=== PATIENT | female | born 1980 | race African-American/Black ===

== ENCOUNTER 2019-07-07 03:59 | Emergency (ER) | payer BC ==
[2019-07-07] MEDS ORDERED: ONDANSETRON *ODT* 4 MG TABLET SL ONE (04:27)
[2019-07-07 04:28] VITALS: BMI 37.8
[2019-07-07] MEDS ORDERED: SODIUM CHLORIDE 1,000 ML IV STA (04:28)
[2019-07-07] MEDS ORDERED: ACETAMINOPHEN 1000 MG/100 ML VIAL (NON FORMULARY) IVPB ONE (04:30)
--- NOTE | 2019-07-07 04:33 | PDOC ---
History of Present Illness - General Chief Complaint: Nausea/Vomiting Stated Complaint: VOMITING Time Seen by Provider: 07/07/19 04:15 History Source: Patient, Friend - History of Present Illness Initial Comments: 07/07/19 04:31 Pt is a 39y/o female with GERD who presents with nausea/vomiting x2 days. 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 She started Tamiflu 2 days ago. Pt reports fever with Tmax 105. She has been alternating Tylenol and Motrin but fever has not stopped. She has body aches, chills, non- productive cough. She had diarrhea 2 days ago and took Imodium with no BM since. She now reports bloating and passes some gas. Past History - Past Medical History Allergies/Adverse Reactions: Allergies Allergy/AdvReac Type Severity Reaction Status Date / Time eggplant Allergy Verified 07/07/19 04:28 red dye Allergy Verified 07/07/19 04:28 COPD: No - Surgical History Neurologic Surgery: Yes (Spinal surgery 3 herniated disks) - Immunization History Immunization Up to Date: Yes - Psycho Social/Smoking Cessation Hx Smoking History: Never smoked Have you smoked in the past 12 months: No Information on smoking cessation initiated: No Hx Alcohol Use: No Drug/Substance Use Hx: No (Occasional marijuana use) *Physical Exam - Vital Signs Last Vital Signs Temp Pulse Resp BP Pulse Ox 102.5 F H 99 H 20 109/67 96 07/07/19 04:23 07/07/19 04:23 07/07/19 04:23 07/07/19 04:23 07/07/19 04:23 ED Treatment Course - LABORATORY CBC & Chemistry Diagram: 07/07/19 05:30 07/07/19 05:30 Medical Decision Making - Medical Decision Making 07/07/19 04:44 Pt is a 39y/o female with GERD who presents with nausea/vomiting x2 days and tested positive for flu A 4 days ago. She started Tamiflu 2 days ago. ddx: influenza, , UTI CBC, CMP, UPT, UA, Zofran 8mg ODT, 1L NS, Ofirmev 1g, Toradol 30mg, Pepcid 20mg , Mylanta 07/07/19 06:52 negative UPT UA +protein, glucose, ketone- likely from dehydration; pt will need to f/u with PCP for possible type 2 diabetes BG 258 fasting CBC unremarkable transaminitis vomiting stopped, but still some nausea, will give Reglan 10mg Discharge - Discharge Information Problems reviewed: Yes Clinical Impression/Diagnosis: Vomiting Qualifiers: Vomiting type: unspecified Vomiting Intractability: non-intractable Nausea presence: with nausea Qualified Code(s): R11.2 - Nausea with vomiting, unspecified - Follow up/Referral - Patient Discharge Instructions Patient Printed Discharge Instructions: DI for Vomiting -- Adult Additional Instructions: You were seen in the emergency room for vomiting and fever. You were given medications for fever, pain, nausea, as well as hydration. Your symptoms have improved, and you are able to go home. Follow up with your primary care doctor as your blood glucose was 258, and your urinalysis had glucose and ketones in it. - Post Discharge Activity
[2019-07-07] MEDS ORDERED: ACETAMINOPHEN INJECTION 100 ML IVPB ONE (04:35)
[2019-07-07] MEDS ORDERED: MAG HYDROX/AL HYDROX/SIMETH 30 ML UNIT-DOSE CUP PO ONE (05:13)
[2019-07-07] MEDS ORDERED: FAMOTIDINE 20 MG TABLET PO ONE (05:13)
[2019-07-07] MEDS ORDERED: KETOROLAC TROMETHAMINE 30 MG/1 ML VIAL IVPUSH ONE (05:13)
[2019-07-07] MEDS ORDERED: LACTATED RINGERS SOLUTION 1,000 ML/1,000 ML INFUS.BAG IV STA (05:13)
--- NOTE | 2019-07-07 05:16 | PDOC ---
Attending Attestation - Resident Resident Name: Radha Martini - ED Attending Attestation I have performed the following: I have examined & evaluated the patient, The case was reviewed & discussed with the resident, I agree w/resident's findings & plan, Exceptions are as noted - HPI HPI: 07/07/19 05:14 39yoF known FLU A + on tamiflu presnts w/ malaise, fevers, vomiting, unable to tolerate PO at home. No new or changed symptoms, feels that she is not doing well. states she feels dehydrated. - Physicial Exam PE: 07/07/19 05:15 NAD, appears under the weather RRR CTABL soft, diffuse mild ttp, no guarding, no rebound. mm dry neuro nonfocal A&O x 3 - Medical Decision Making 07/07/19 05:15 39yoF w/ known FLU A + x few days presents w/ difficulty controlling symptoms at home. - labs - ivf - sxs control - reeval and dispo per results.
[2019-07-07 05:25] LABS: EPI CELLS 32.4 /HPF (0-5/HPF); HYALINE CASTS 46 /lpf (0-8); PH,URINE 6.5 (5.0-8.0); URINE APPEARANCE CLOUDY; URINE BACTERIA 663.9 /hpf (NEGATIVE); URINE BILIRUBIN NEGATIVE (NEGATIVE); URINE COLOR DK YELLOW; URINE GLUCOSE (UA) 3+ (NEGATIVE); URINE KETONE 2+ (NEGATIVE); URINE LEUK ESTERASE NEGATIVE (NEGATIVE); URINE NITRITE NEGATIVE (NEGATIVE); URINE PROTEIN 2+ (NEGATIVE); URINE WBC 6 /hpf (0-5)
[2019-07-07] MEDS ORDERED: MAG HYDROX/AL HYDROX/SIMETH 30 ML UNIT-DOSE CUP ONE (05:38)
[2019-07-07] MEDS ORDERED: FAMOTIDINE 20 MG TABLET ONE (05:38)
[2019-07-07] MEDS ORDERED: KETOROLAC TROMETHAMINE 30 MG/1 ML VIAL ONE (05:39)
[2019-07-07 06:14] LABS: BASO % 0.6 % (0-2.0); EOS % 0.1 % (0-4.5); HEMATOCRIT 38.7 % (32.4-45.2); HEMOGLOBIN 12.5 GM/dL (10.7-15.3); LYMPH % 19.7 % (8-40); MCH 27.1 pg (25.7-33.7); MCHC 32.4 g/dl (32.0-36.0); MEAN CELL VOLUME 83.9 fl (80-96); MEAN PLT VOLUME 10.1 fl (7.5-11.1); MONO % 6.6 % (3.8-10.2); PLATELET COUNT 164 K/MM3 (134-434); RBC 4.61 M/mm3 (3.60-5.2); RDW 13.9 % (11.6-15.6); WHITE BLOOD COUNT 2.8 K/mm3 (4.0-10.0)
[2019-07-07 06:18] LABS: URINE RBC 10.2 /hpf (0-4)
[2019-07-07] MEDS ORDERED: METOCLOPRAMIDE HCL INJECTION 10 MG/2 ML VIAL IVPUSH ONE (06:43)
[2019-07-07 06:47] LABS: ALBUMIN 3.3 g/dl (3.4-5.0); BILIRUBIN,TOTAL 0.8 mg/dL (0.2-1); BLOOD UREA NITROGEN 5.4 mg/dL (7-18); CALCIUM 8.5 mg/dL (8.5-10.1); POTASSIUM 3.8 mmol/L (3.5-5.1); TOT PROT 7.8 g/dl (6.4-8.2)
[2019-07-07] MEDS ORDERED: SODIUM CHLORIDE 0.9% 500 ML INFUS.BAG IV ONE (07:32)
--- NOTE | 2019-07-07 07:43 | PDOC ---
*Physical Exam - Vital Signs Last Vital Signs Temp Pulse Resp BP Pulse Ox 102.5 F H 99 H 20 109/67 96 07/07/19 04:23 07/07/19 04:23 07/07/19 04:23 07/07/19 04:23 07/07/19 04:23 ED Treatment Course - LABORATORY CBC & Chemistry Diagram: 07/07/19 05:30 07/07/19 11:15 - ADDITIONAL ORDERS Additional order review: Laboratory Results 07/07/19 07/07/19 07/07/19 05:30 05:00 05:00 Sodium 134 L Potassium 3.8 Chloride 100 Carbon Dioxide 25 Anion Gap 8 BUN 5.4 L Creatinine 1.0 Est GFR (CKD-EPI)AfAm 83.35 Est GFR (CKD-EPI)NonAf 71.91 Random Glucose 258 H Calcium 8.5 Total Bilirubin 0.8 AST 114 H ALT 116 H Alkaline Phosphatase 107 Total Protein 7.8 Albumin 3.3 L Urine Color Dk yellow Urine Appearance Cloudy Urine pH 6.5 Ur Specific [place] 1.034 Urine Protein 2+ H Urine Glucose (UA) 3+ H Urine Ketones 2+ H Urine Blood Negative Urine Nitrite Negative Urine Bilirubin Negative Urine Urobilinogen 1.0 Ur Leukocyte Esterase Negative Urine WBC (Auto) 6 Urine RBC (Auto) 10.2 Urine Casts (Auto) 46 U Pathogenic Cast Auto None seen U Epithel Cells (Auto) 32.4 U Sm Round Cell (Auto) None seen Urine Bacteria (Auto) 663.9 Urine HCG, Qual Negative 07/07/19 05:30 RBC 4.61 MCV 83.9 MCHC 32.4 RDW 13.9 MPV 10.1 Neutrophils % 73.0 Lymphocytes % 19.7 Monocytes % 6.6 Eosinophils % 0.1 Basophils % 0.6 - Medications Given in the ED: ED Medications Discontinued Medications Generic Name Dose Route Start Last Admin Trade Name Freq PRN Reason Stop Dose Admin Acetaminophen 1,000 mg 07/07/19 04:30 07/07/19 05:25 Ofirmev Injection - IVPB 07/07/19 04:31 1,000 mg ONCE ONE Administration Al Hydroxide/Mg Hydroxide 30 ml 07/07/19 05:13 07/07/19 05:50 Mylanta Oral Suspension - PO 07/07/19 05:14 30 ml ONCE ONE Administration Famotidine 20 mg 07/07/19 05:13 07/07/19 05:50 Pepcid - PO 07/07/19 05:14 20 mg ONCE ONE Administration Sodium Chloride 1,000 mls @ 1,000 mls/hr 07/07/19 04:28 07/07/19 05:45 Normal Saline - IV 07/07/19 05:27 1,000 mls/hr ASDIR STA Administration Ketorolac Tromethamine 30 mg 07/07/19 05:13 07/07/19 05:50 Toradol Injection - IVPUSH 07/07/19 05:14 30 mg ONCE ONE Administration Ondansetron HCl 8 mg 07/07/19 04:27 07/07/19 05:00 Zofran Odt - SL 07/07/19 04:28 8 mg ONCE ONE Administration Medical Decision Making - Medical Decision Making 07/07/19 07:42 39 y/o F presenting with nausea and vomiting recently tested positive for flu. to do's -RUQ ultrasound due to epigastric pain - additional Reglan due to continuing complaint of nausea -additional 1L of NS. -finger glucose. (glucose in urine) 07/07/19 09:56 -worsening nausea and palpitations -will get EKG, cardiac profile, benadryl - 07/07/19 09:57 07/07/19 12:31 Pt still complaining of dizziness and nausea, but asking for food and complaining of hunger Has tolerated water so far without emesis Given orange juice, will re-evaluate 07/07/19 13:10 Pt tolerated PO will discharge Discharge - Discharge Information Problems reviewed: Yes Clinical Impression/Diagnosis: Vomiting Qualifiers: Vomiting type: unspecified Vomiting Intractability: non-intractable Nausea presence: with nausea Qualified Code(s): R11.2 - Nausea with vomiting, unspecified - Follow up/Referral - Patient Discharge Instructions Patient Printed Discharge Instructions: DI for Vomiting -- Adult Additional Instructions: You were seen in the emergency room for vomiting and fever. You were given medications for fever, pain, nausea, as well as hydration. Your symptoms have improved, and you are able to go home. Follow up with your primary care doctor as your blood glucose was 258, and your urinalysis had glucose and ketones in it. - Post Discharge Activity
[2019-07-07] MEDS ORDERED: METOCLOPRAMIDE HCL INJECTION 10 MG/2 ML VIAL ONE (07:47)
[2019-07-07 08:05] VITALS: BP 127/70; PULSE 75; TEMP 99.3
--- NOTE | 2019-07-07 12:14 | EKG ---
Test Reason : Blood Pressure : / mmHG Vent. Rate : 064 BPM Atrial Rate : 064 BPM P-R Int : 144 ms QRS Dur : 078 ms QT Int : 408 ms P-R-T Axes : 057 039 026 degrees QTc Int : 420 ms NORMAL SINUS RHYTHM WITH SINUS ARRHYTHMIA LOW VOLTAGE QRS BORDERLINE ECG NO PREVIOUS ECGS AVAILABLE Confirmed by Xi Curran ([id number]) on 07/07/2019 12:14:25 PM Referred By: Confirmed By:Xi Curran
[2019-07-07 12:30] LABS: ANION GAP 6 MMOL/L (8-16); BLOOD UREA NITROGEN 5.9 mg/dL (7-18); CALCIUM 7.6 mg/dL (8.5-10.1); CHLORIDE 105 mmol/L (98-107); CO2 25 mmol/L (21-32); CREATININE 0.8 mg/dL (0.55-1.3); GLUCOSE,RANDOM 233 mg/dL (74-106); SODIUM 136 mmol/L (136-145)
== END 2019-07-07 15:07 | disposition home or self-care (01) ==
LOC: JER 03:59
PROC: 3E033GC Introduction of Other Therapeutic Substance into Peripheral Vein, Percutaneous Approach (ICD-10-PCS; principal; 2019-07-07)
DX: R11.2 Nausea with vomiting, unspecified (principal); J09.X3 Influenza due to identified novel influenza A virus with gastrointestinal manifestations
CPT/HCPCS: 36415; 76705-TC; 80048; 80053; 81003; 82550; 82553; 82962; 84484; 84703; 85025; 93005; 93010; 99283-25; J0131; J7030; Q0162